=== PATIENT | male | born 1975 | race American Indian/Alaskan Native ===

== ENCOUNTER 2016-12-24 07:35 | Emergency (ER) | payer BC, OTHER ==
[2016-12-24 07:51] VITALS: BMI 29.9
[2016-12-24] MEDS: Albuterol-Ipratrop 3 mg / 0.5 (3 ml) UD IH SCH ×3 (08:13→08:50)
--- NOTE | 2016-12-24 08:17 | ED PDOC ---
Arrival/HPI - General Chief Complaint: Shortness Of Breath Time Seen by Provider: 12/24/16 07:38 Historian: Patient - History of Present Illness Narrative History of Present Illness (Text): 12/24/16 07:56 A 41 year old male, whose past medical history includes hypertension and heart murmur, presents to the emergency department complaining of intermittent cough with phlegm (clear to green and vice versa) and shortness of breath for 2 days. Patient reports 2 days ago, he went to visit his PMD for shortness of breath and sore throat. PMD stated patient had strep throat and prescribed augmentin for symptoms. Patient mentions he has no history of asthma as a child. Also, patient states and son had similar symptoms of strep throat, is currently feeling better but son still is sick. Patient notes also experiencing congestion, but denies of any fever, chest pain, or any other complaints. No PMD Time/Duration: < week (2 days) Symptom Onset: Sudden Symptom Course: Unchanged Activities at Onset: Rest, Light Past Medical History - Provider Review Nursing Documentation Reviewed: Yes - Infectious Disease Hx of Infectious Diseases: None - Tetanus Immunization Tetanus Immunization: Up to Date - Cardiac Hx Cardiac Disorders: Yes Hx Heart Murmur: Yes - Pulmonary Hx Respiratory Disorders: No - Neurological Hx Neurological Disorder: No - HEENT Hx HEENT Disorder: No - Renal Hx Renal Disorder: No - Endocrine/Metabolic Hx Endocrine Disorders: No - Hematological/Oncological Hx Blood Disorders: No - Integumentary Hx Dermatological Disorder: No - Musculoskeletal/Rheumatological Hx Musculoskeletal Disorders: Yes Hx Rhabdomyolysis: Yes - Gastrointestinal Hx Gastrointestinal Disorders: No - Genitourinary/Gynecological Hx Genitourinary Disorders: No - Psychiatric Hx Psychophysiologic Disorder: Yes Hx Anxiety: Yes Hx Substance Use: No - Past Surgical History Past Surgical History: No Previous - Anesthesia Hx Anesthesia: No - Suicidal Assessment Feels Threatened In Home Enviroment: No Family/Social History - Physician Review Nursing Documentation Reviewed: Yes Family/Social History: No Known Family HX Smoking Status: Heavy Smoker > 10 Cigarettes Daily Hx Alcohol Use: Yes Hx Substance Use: No Hx Substance Use Treatment: No Allergies/Home Meds Allergies/Adverse Reactions: Allergies No Known Allergies Allergy (Verified 12/24/16 07:51) Home Medications: Home Meds Medication Instructions Recorded Confirmed Albuterol HFA [Ventolin HFA 90 1 puff IH DAILY 12/24/16 12/24/16 mcg/actuation (8 g)] Amoxicillin/Clavulanate [Augmentin 1 tab PO BID 12/24/16 12/24/16 875 MG-125 MG] Metoprolol Tartrate [Lopressor] 50 mg PO DAILY 12/24/16 12/24/16 amLODIPine [Norvasc] 10 mg PO DAILY 12/24/16 12/24/16 Review of Systems - Physician Review All systems were reviewed & negative as marked: Yes - Review of Systems Constitutional: absent: Fevers ENT: Sinus Congestion Respiratory: SOB, Cough (intermittent cough with phlegm (clear to green and vice versa)) Cardiovascular: absent: Chest Pain Physical Exam Vital Signs Reviewed: Yes Vital Signs Temp Pulse Resp BP Pulse Ox 12/24/16 09:26 98.0 F 98 H 17 140/86 96 12/24/16 08:00 18 99 12/24/16 07:51 97.8 F 99 H 19 145/94 H 100 12/24/16 07:50 97.8 F 99 H 19 145/94 H 100 Temperature: Afebrile Blood Pressure: Normal Respiratory Rate: Normal Appearance: Positive for: Well-Appearing Pain Distress: None Mental Status: Positive for: Alert and Oriented X 3 - Systems Exam Head: Present: Atraumatic, Normocephalic Pupils: Present: PERRL Extroacular Muscles: Present: EOMI Conjunctiva: Present: Normal Mouth: Present: Moist Mucous Membranes Nose (Internal): Present: Rhinorrhea Neck: Present: Normal Range of Motion Respiratory/Chest: Present: Wheezes (scattered wheezing bilaterally), Rhonchi ( scattered rhonchi bilaterally) Cardiovascular: Present: Regular Rate and Rhythm, Normal S1, S2. No: Murmurs Abdomen: Present: Normal Bowel Sounds. No: Tenderness, Distention, Peritoneal Signs Back: Present: Normal Inspection Upper Extremity: Present: Normal Inspection. No: Cyanosis, Edema Lower Extremity: No: Edema Neurological: Present: GCS=15, CN II-XII Intact, Speech Normal, Motor Func Grossly Intact, Normal Sensory Function Skin: Present: Warm, Dry, Normal Color. No: Rashes Psychiatric: Present: Alert, Oriented x 3, Normal Insight, Normal Concentration Medical Decision Making ED Course and Treatment: 12/24/16 08:00 Impression: 41 year old male with shortness of breath and intermittent cough with phlegm (clear to green and vice versa). Physical exam shows rhinorrhea; scattered rhonchi and wheezing bilaterally; no lower extremity edema. Differential Diagnosis included but are not limited to: Bronchitis vs. Asthma Plan: -- EKG -- Chest X-ray -- Serology -- Duoneb -- Reassess and disposition Prior Visits: Notes and results from previous visits were reviewed. Patient was last seen in the emergency department on 09/12/2014 for lightheadedness, dizziness, and some nausea. Patient was discharged home. Progress Notes: EKG: Ordered, reviewed, and independently interpreted the EKG. Rate : 94 BPM Rhythm : NSR Interpretation : No ST-segment elevations or depressions, no T-wave inversions, normal intervals. Comparison : No previous EKG for comparison. 12/24/2016 09:[address] IMPRESSION: No active disease. No interval pahtology noted. Dictator: Sreedhar Tanner MD Patient's Xray was negative for PNA. On reevaluation, patient felt much better and no longer has symptoms. Lungs are cta b/l no w/r/r. He was given prednisone and will continue to take it for 4 days. He was advised to continue antibiotics and to take albuterol as needed. He was advised to return to the ED if symptoms worsen or any other concern. - Lab Interpretations Lab Results: Lab Results 12/24/16 08:01: Influenza Typ A,B (EIA) Negative for flu a/b I have reviewed the lab results: Yes Interpretation: All labs normal - RAD Interpretation Radiology Orders: 12/24/16 08:01 CHEST TWO VIEWS (PA/LAT) [RAD] Stat Banquet Stewardess: Radiologist - Medication Orders Current Medication Orders: Discontinued Medications Albuterol/Ipratropium (Duoneb 3 Mg/0.5 Mg (3 Ml) Ud) 3 ml IH Q15M JOSY Stop: 12/24/16 08:31 Last Admin: 12/24/16 08:50 Dose: 3 ml Prednisone (Prednisone Tab) 60 mg PO STAT STA Stop: 12/24/16 09:19 Last Admin: 12/24/16 09:23 Dose: 60 mg - Scribe Statement The provider has reviewed the documentation as recorded by the Jose E Howard Provider Scribe Attestation: All medical record entries made by the Scribe were at my direction and personally dictated by me. I have reviewed the chart and agree that the record accurately reflects my personal performance of the history, physical exam, medical decision making, and the department course for this patient. I have also personally directed, reviewed, and agree with the discharge instructions and disposition. Disposition/Present on Arrival - Present on Arrival Any Indicators Present on Arrival: No History of DVT/PE: No History of Uncontrolled Diabetes: No Urinary Catheter: No History of Decub. Ulcer: No History Surgical Site Infection Following: None - Disposition Have Diagnosis and Disposition been Completed?: Yes Diagnosis: Bronchitis Disposition: HOME/ ROUTINE Disposition Time: 09:20 Patient Plan: Discharge Condition: IMPROVED Discharge Instructions (ExitCare): Acute Bronchitis (ED) Additional Instructions: Mr Nielson, thank you for letting us take care of you today. Your provider was Dr. Leon. You were treated for Bronchitis. The emergency medical care you received today was directed at your acute symptoms. If you were prescribed any medication, please fill it and take as directed. It may take several days for your symptoms to resolve. Return to the Emergency Department if your symptoms worsen, do not improve, or if you have any other problems. Please contact your doctor or call one of the physicians/clinics you have been referred to that are listed on the Patient Visit Information form that is included in your discharge packet. Bring any paperwork you were given at discharge with you along with any medications you are taking to your follow up visit. Our treatment cannot replace ongoing medical care by a primary care provider (PCP) outside of the emergency department. Thank you for allowing the [facility] team to be part of your care today. If you had an X-Ray or CT scan: A Radiologist will review the ED reading if any change in treatment is needed we will contact you. If you had a blood, urine, or wound culture: It will take several days for the results, if any change in treatment is needed we will contact you. If you had an STI test: It will take 48 hours for the results. Please call after 1 week if you have not heard back. Prescriptions: Albuterol HFA [Ventolin HFA 90 mcg/actuation (8 g)] 2 puff IH Q4 #1 puff predniSONE [predniSONE Tab] 40 mg PO DAILY #8 tab Referrals: [facility], [Family Provider] - Follow up with primary Forms: [employer] (Indonesian), WORK NOTE
[2016-12-24 09:29] VITALS: BP 140/86; PULSE 98; RESP 17; TEMP 98; O2SAT 96
--- NOTE | 2016-12-24 09:34 | RAD ---
HISTORY: cough r/o PNA COMPARISON: 09/12/2014 TECHNIQUE: Chest PA and lateral FINDINGS: LUNGS: No active pulmonary disease. PLEURA: No significant pleural effusion identified. No pneumothorax apparent. CARDIOVASCULAR: Normal. OSSEOUS STRUCTURES: No significant abnormalities. VISUALIZED UPPER ABDOMEN: Normal. OTHER FINDINGS: None. IMPRESSION: No active disease. No interval pathology noted
--- NOTE | 2016-12-24 21:30 | CARD ---
APPROVED REPORT EKG Measurement Heart [id number] <Conclusion> Normal sinus rhythm Possible Left atrial enlargement Left ventricular hypertrophy Abnormal ECG
== END 2016-12-24 09:29 | disposition home or self-care (01) ==
LOC: ED 07:35
DX: J40 Bronchitis, not specified as acute or chronic (principal); F17.210 Nicotine dependence, cigarettes, uncomplicated; I10 Essential (primary) hypertension

== ENCOUNTER 2017-12-04 19:24 | Emergency (ER) | payer BC ==
[2017-12-04 19:38] VITALS: RESP 18; BMI 27.5
--- NOTE | 2017-12-04 19:55 | ED PDOC ---
Arrival/HPI - General Chief Complaint: Dizziness/Lightheaded Time Seen by Provider: 12/04/17 19:28 Historian: Patient - History of Present Illness Narrative History of Present Illness (Text): 12/04/17 19:52 42 year old male, whose past medical history includes hypertension and heart murmur, presents to the emergency department with headache discomfort, occasional dizziness, and sore throat. Patient informs he is compliant with his blood pressure medications, Lopressor and Amalodipine. Patient denies any nausea, vomiting, chest pain, shortness of breath, fevers, chills, or any other complaint. Time/Duration: Prior to Arrival Past Medical History - Provider Review Nursing Documentation Reviewed: Yes - Infectious Disease Hx of Infectious Diseases: None - Tetanus Immunization Tetanus Immunization: Up to Date - Cardiac Hx Cardiac Disorders: Yes Hx Heart Murmur: Yes - Pulmonary Hx Respiratory Disorders: No - Neurological Hx Neurological Disorder: No - HEENT Hx HEENT Disorder: No - Renal Hx Renal Disorder: No - Endocrine/Metabolic Hx Endocrine Disorders: No - Hematological/Oncological Hx Blood Disorders: No - Integumentary Hx Dermatological Disorder: No - Musculoskeletal/Rheumatological Hx Musculoskeletal Disorders: Yes Hx Rhabdomyolysis: Yes - Gastrointestinal Hx Gastrointestinal Disorders: No - Genitourinary/Gynecological Hx Genitourinary Disorders: No - Psychiatric Hx Psychophysiologic Disorder: Yes Hx Anxiety: Yes Hx Substance Use: No - Past Surgical History Past Surgical History: No Previous - Anesthesia Hx Anesthesia: No - Suicidal Assessment Feels Threatened In Home Enviroment: No Family/Social History - Physician Review Nursing Documentation Reviewed: Yes Family/Social History: No Known Family HX Smoking Status: Heavy Smoker > 10 Cigarettes Daily Hx Alcohol Use: Yes Hx Substance Use: No Hx Substance Use Treatment: No Allergies/Home Meds Allergies/Adverse Reactions: Allergies No Known Allergies Allergy (Verified 12/04/17 19:38) Home Medications: Home Meds Medication Instructions Recorded Confirmed Metoprolol Tartrate [Lopressor] 50 mg PO DAILY 12/24/16 12/04/17 amLODIPine [Norvasc] 10 mg PO DAILY 12/24/16 12/04/17 Review of Systems - Physician Review All systems were reviewed & negative as marked: Yes - Review of Systems Constitutional: absent: Fevers, Night Sweats ENT: Sore Throat Respiratory: absent: SOB Cardiovascular: absent: Chest Pain Gastrointestinal: absent: Nausea, Vomiting Neurological: Headache, Dizziness Physical Exam Vital Signs Reviewed: Yes Vital Signs Pulse Resp BP Pulse Ox 12/04/17 19:37 77 18 150/90 99 Temperature: Afebrile Blood Pressure: Normal Pulse: Regular Respiratory Rate: Normal Appearance: Positive for: Well-Appearing, Non-Toxic, Comfortable Pain Distress: None Mental Status: Positive for: Alert and Oriented X 3 - Systems Exam Head: Present: Atraumatic, Normocephalic Pupils: Present: PERRL Extroacular Muscles: Present: EOMI Conjunctiva: Present: Normal Mouth: Present: Moist Mucous Membranes Pharnyx: Present: ERYTHEMA (To posterior Pharnyx). No: EXUDATE Neck: Present: Normal Range of Motion, Other (Supple). No: Meningeal Signs Respiratory/Chest: Present: Clear to Auscultation, Good Air Exchange. No: Respiratory Distress, Accessory Muscle Use Cardiovascular: Present: Regular Rate and Rhythm, Normal S1, S2. No: Murmurs Abdomen: No: Tenderness, Distention, Peritoneal Signs Back: Present: Normal Inspection Upper Extremity: Present: Normal Inspection. No: Cyanosis, Edema Lower Extremity: Present: Normal Inspection. No: Edema Neurological: Present: GCS=15, CN II-XII Intact, Speech Normal Skin: Present: Warm, Dry, Normal Color. No: Rashes Psychiatric: Present: Alert, Oriented x 3, Normal Insight, Normal Concentration Medical Decision Making ED Course and Treatment: 12/04/17 19:58 Impression: 42 year old male presents with headache discomfort, dizziness, and sore throat. Plan: -- CT Head w/o contrast -- Ultram -- Reassess and disposition Prior Visits: Notes and results from previous visits were reviewed. On 12/24/2016, pt was seen in the Emergency Department for intermittent cough and shortness of breath. Pt was discharged home. Progress Notes: 12/04/17 22:06 CT Head Impression: No acute intracranial abnormality. Electronically signed on Dec 05, 2011 22:01:05 EDT by: Clement Agudelo M.D. - RAD Interpretation Accounts Payable Accountant: Radiologist - Scribe Statement The provider has reviewed the documentation as recorded by the Veeibbernadette Kemp Provider Scribe Attestation: All medical record entries made by the Scribe were at my direction and personally dictated by me. I have reviewed the chart and agree that the record accurately reflects my personal performance of the history, physical exam, medical decision making, and the department course for this patient. I have also personally directed, reviewed, and agree with the discharge instructions and disposition. Disposition/Present on Arrival - Present on Arrival Any Indicators Present on Arrival: No History of DVT/PE: No History of Uncontrolled Diabetes: No Urinary Catheter: No History of Decub. Ulcer: No History Surgical Site Infection Following: None - Disposition Have Diagnosis and Disposition been Completed?: Yes Diagnosis: Headache, Pharyngitis Disposition: HOME/ ROUTINE Disposition Time: 23:00 Patient Plan: Discharge Condition: GOOD Discharge Instructions (ExitCare): Sore Throat, Adult (DC), Tension Headache (DC) Additional Instructions: Take meds as prescribed/drink cool liquids/follow up with your doctor this week Prescriptions: Amoxicillin [Amoxil 500 mg Cap] 500 mg PO TID #21 cap Acetaminophen/Butalbital/Caf [Fioricet] 1 tab PO Q6 PRN #16 tab PRN Reason: Headache Referrals: Chelsie Howard MD [Primary Care Provider] - Follow up with primary Forms: [email or web address] (Irish)
[2017-12-05 01:01] VITALS: BP 119/72; PULSE 68; TEMP 98.2; O2SAT 100
--- NOTE | 2017-12-05 13:08 | CT ---
Date of service: 12/04/2017 PROCEDURE: CT HEAD WITHOUT CONTRAST. HISTORY: headache COMPARISON: None available. TECHNIQUE: Axial computed tomography images were obtained through the head/brain without intravenous contrast. Supplemental Coronal and Sagittal projectections created and reviewed. Radiation dose: Total exam DLP = mGy-cm. This CT exam was performed using one or more of the following dose reduction techniques: Automated exposure control, adjustment of the mA and/or kV according to patient size, and/or use of iterative reconstruction technique. FINDINGS: HEMORRHAGE: No intracranial hemorrhage. BRAIN: No mass effect or edema. No atrophy or chronic microvascular ischemic changes. VENTRICLES: Unremarkable. No hydrocephalus. CALVARIUM: Unremarkable. PARANASAL SINUSES: Unremarkable as visualized. No significant inflammatory changes. MASTOID AIR CELLS: Unremarkable as visualized. No inflammatory changes. OTHER FINDINGS: None. IMPRESSION: No acute intracranial abnormalities. No significant findings to account for the clinical presentation. Concordant results (preliminary interpretation) provided by [employer]. Procedure Completed: 21:25 Preliminary Report: Dictated and Authenticated: 22:01. Final Interpretation: 13:06.
== END 2017-12-04 23:08 | disposition home or self-care (01) ==
LOC: ED 19:24
DX: J02.9 Acute pharyngitis, unspecified (principal); R51 Headache; I10 Essential (primary) hypertension; F17.210 Nicotine dependence, cigarettes, uncomplicated

== ENCOUNTER 2018-07-08 10:51 | Emergency (ER) | payer BC ==
[2018-07-08 10:52] VITALS: BMI 27.5
[2018-07-08 11:17] VITALS: RESP 18; TEMP 99.1
[2018-07-08] MEDS ORDERED: Sodium Chloride 0.9% 1,000 ML IV STA (11:56)
[2018-07-08 12:33] LABS: BASO # 0.04 K/mm3 (0.0-2.0); BASO % 0.5 % (0.0-3.0); EOS # 0.1 (0.0-0.7); EOS % 1.3 % (1.5-5.0); LYMPH # 2.4 (1.2-3.4); LYMPH % 31.3 % (22.0-35.0); MEAN CELL VOLUME 92.3 fl (80.0-105.0); MEAN CORPUSCULAR HEMOGLOBIN 31.9 pg (25.0-35.0); MEAN CORPUSCULAR HGB CONC 34.6 g/dl (31.0-37.0); MEAN PLATELET VOLUME 9.1 fl (7.0-11.0); MONO # 0.5 (0.1-0.6); MONO % 5.9 % (1.0-6.0); RBC 4.7 10^6/uL (3.5-6.1); RED CELL DISTRIBUTION WIDTH 12.9 % (11.5-14.5); WHITE BLOOD COUNT 7.7 10^3/uL (4.5-11.0)
[2018-07-08 12:40] LABS: ALB/GLOB RATIO 1.5 (1.1-1.8); ALBUMIN 4.4 g/dL (3.0-4.8); ALT/SGPT 70 U/L (7-56); AST/SGOT 42 U/L (17-59); BLOOD UREA NITROGEN 14 mg/dL (7-21); CALCIUM 9.7 mg/dL (8.4-10.5); GFR NON-AFRICAN AMERICAN > 60; LIPASE 87 U/L (23-300)
[2018-07-08 12:44] LABS: PH,URINE 6.5 (4.7-8.0); URINE BILIRUBIN NEGATIVE (NEGATIVE); URINE BLOOD NEGATIVE (NEGATIVE); URINE GLUCOSE (UA) NEGATIVE (NEGATIVE); URINE LEUKOCYTE ESTERASE NEGATIVE Leu/uL (NEGATIVE); URINE PROTEIN NEGATIVE mg/dL (<30 mg/dL)
[2018-07-08 12:48] LABS: URINE APPEARANCE CLEAR (CLEAR); URINE COLOR YELLOW (YELLOW)
[2018-07-08 12:53] LABS: TROPONIN I < 0.01 ng/mL
[2018-07-08 12:59] VITALS: O2SAT 100
[2018-07-08 13:02] LABS: CK-MB 1.6 ng/mL (0.0-3.6)
--- NOTE | 2018-07-08 14:43 | CT ---
Date of service: 07/08/2018 PROCEDURE: CT Abdomen and Pelvis with contrast HISTORY: upper abdominal pain COMPARISON: None. TECHNIQUE: Contrast dose: 150 cc of Omni 350 Radiation dose: Total exam DLP = 1116.04 mGy-cm. This CT exam was performed using one or more of the following dose reduction techniques: Automated exposure control, adjustment of the mA and/or kV according to patient size, and/or use of iterative reconstruction technique. FINDINGS: LOWER THORAX: Unremarkable. LIVER: Unremarkable. No gross lesion or ductal dilatation. GALLBLADDER AND BILE DUCTS: Unremarkable. PANCREAS: Unremarkable. No gross lesion or ductal dilatation. SPLEEN: Unremarkable. ADRENALS: Unremarkable. No mass. KIDNEYS AND URETERS: Unremarkable. No hydronephrosis. No solid mass. VASCULATURE: Unremarkable. No aortic aneurysm. Minimal aortic calcification BOWEL: Unremarkable. No obstruction. No gross mural thickening. There is fatty infiltration of the bowel wall in the ascending colon. This can be seen in chronic inflammatory bowel disease. There are no acute changes. APPENDIX: Normal appendix. PERITONEUM: Unremarkable. No free fluid. No free air. LYMPH NODES: Unremarkable. No enlarged lymph nodes. BLADDER: Unremarkable. REPRODUCTIVE: Unremarkable. BONES: No acute fracture. OTHER FINDINGS: None. IMPRESSION: No acute intra-abdominal findings
[2018-07-08 15:14] VITALS: BP 122/69; PULSE 61
--- NOTE | 2018-07-08 16:02 | ED PDOC ---
Arrival/HPI - General Chief Complaint: GI Problem Historian: Patient - History of Present Illness Narrative History of Present Illness (Text): 07/08/18 16:02 Shawn Nielson is a 43 year old male, with a past medical history of hypertension and heart murmur, who presents to the emergency department complaining of diarrhea since 2-3 days. Patient informs diarrhea is nonbloody but notes associated nausea. Patient denies fevers, chills, chest pain, shortn ess of breath, abdominal pain, vomiting, headache, dizziness, or any other complaints. Time/Duration: < week (2-3 days) Symptom Onset: Sudden Symptom Course: Unchanged Activities at Onset: Light Context: Home Past Medical History - Provider Review Nursing Documentation Reviewed: Yes - Infectious Disease Hx of Infectious Diseases: None - Tetanus Immunization Tetanus Immunization: Up to Date - Cardiac Hx Cardiac Disorders: Yes Hx Heart Murmur: Yes - Pulmonary Hx Respiratory Disorders: No - Neurological Hx Neurological Disorder: No - HEENT Hx HEENT Disorder: No - Renal Hx Renal Disorder: No - Endocrine/Metabolic Hx Endocrine Disorders: No - Hematological/Oncological Hx Blood Disorders: No - Integumentary Hx Dermatological Disorder: No - Musculoskeletal/Rheumatological Hx Musculoskeletal Disorders: Yes Hx Rhabdomyolysis: Yes - Gastrointestinal Hx Gastrointestinal Disorders: No - Genitourinary/Gynecological Hx Genitourinary Disorders: No - Psychiatric Hx Psychophysiologic Disorder: Yes Hx Anxiety: Yes Hx Substance Use: No - Past Surgical History Past Surgical History: No Previous - Anesthesia Hx Anesthesia: No - Suicidal Assessment Feels Threatened In Home Enviroment: No Family/Social History - Physician Review Nursing Documentation Reviewed: Yes Family/Social History: Unknown Family HX Smoking Status: Heavy Smoker > 10 Cigarettes Daily Hx Alcohol Use: Yes Hx Substance Use: No Hx Substance Use Treatment: No Allergies/Home Meds Allergies/Adverse Reactions: Allergies No Known Allergies Allergy (Verified 12/04/17 19:38) Home Medications: Home Meds Medication Instructions Recorded Confirmed Metoprolol Tartrate [Lopressor] 50 mg PO DAILY 12/24/16 07/08/18 Losartan/Hydrochlorothiazide 1 each PO DAILY 07/08/18 07/08/18 [Losartan-Hctz 100-25 mg Tab] Verapamil [Verapamil HCl] 300 mg PO DAILY 07/08/18 07/08/18 Review of Systems - Physician Review All systems were reviewed & negative as marked: Yes - Review of Systems Constitutional: absent: Fevers, Other (chills) Respiratory: absent: SOB Cardiovascular: absent: Chest Pain Gastrointestinal: Diarrhea, Nausea. absent: Abdominal Pain, Vomiting Neurological: absent: Headache, Dizziness Physical Exam Vital Signs Reviewed: Yes Vital Signs Temp Pulse Resp BP Pulse Ox 07/08/18 15:13 61 18 122/69 100 07/08/18 12:59 54 L 18 131/72 100 07/08/18 11:13 99.1 F 70 18 154/95 H 99 Temperature: Afebrile Blood Pressure: Normal Pulse: Regular Respiratory Rate: Normal Appearance: Positive for: Well-Appearing, Non-Toxic, Comfortable Pain Distress: None Mental Status: Positive for: Alert and Oriented X 3 - Systems Exam Head: Present: Atraumatic, Normocephalic Pupils: Present: PERRL Extroacular Muscles: Present: EOMI Conjunctiva: Present: Normal Mouth: Present: Moist Mucous Membranes Neck: Present: Normal Range of Motion Respiratory/Chest: Present: Clear to Auscultation, Good Air Exchange. No: Respiratory Distress, Accessory Muscle Use, Wheezes, Rales, Rhonchi Cardiovascular: Present: Regular Rate and Rhythm, Normal S1, S2. No: Murmurs, Rub, Gallop Abdomen: Present: Tenderness (mild epigastric tenderness), Normal Bowel Sounds. No: Distention, Peritoneal Signs, Rebound, Guarding Back: Present: Normal Inspection Upper Extremity: Present: Normal Inspection. No: Cyanosis, Edema Lower Extremity: Present: Normal Inspection. No: Edema Neurological: Present: GCS=15, CN II-XII Intact, Speech Normal Skin: Present: Warm, Dry, Normal Color. No: Rashes Psychiatric: Present: Alert, Oriented x 3, Normal Insight, Normal Concentration Medical Decision Making ED Course and Treatment: 07/08/18 16:05 Impression: Patient is a 43 year old male, with a past medical history of hypertension and heart murmur, who presents to the emergency department complaining of diarrhea since 2-3 days. Plan: -- Abdomen/Pelvis CT with IV Contrast -- EKG -- Labs -- Pepcid -- Zofran -- IV Fluids -- Urinalysis -- Reassess and disposition Prior Visits: Notes and results from previous visits were reviewed. Progress Notes: 07/08/18 16:14 On re-evaluation, patient feels better and has no complaints. - Lab Interpretations Lab Results: Troponin I < 0.01 ng/mL 07/08/18 12:20 Total Bilirubin 0.7 mg/dL (0.2-1.3) 07/08/18 12:20 AST 42 U/L (17-59) 07/08/18 12:20 ALT 70 U/L (7-56) H 07/08/18 12:20 Alkaline Phosphatase 68 U/L (38-126) 07/08/18 12:20 Total Protein 7.4 g/dL (5.8-8.3) 07/08/18 12:20 Albumin 4.4 g/dL (3.0-4.8) 07/08/18 12:20 Globulin 2.9 gm/dL 07/08/18 12:20 Albumin/Globulin Ratio 1.5 (1.1-1.8) 07/08/18 12:20 Lipase 87 U/L (23-300) 07/08/18 12:20 Urine Color Yellow (YELLOW) 07/08/18 12:25 Urine Appearance Clear (CLEAR) 07/08/18 12:25 Urine pH 6.5 (4.7-8.0) 07/08/18 12:25 Ur Specific Isabella 1.015 (1.005-1.035) 07/08/18 12:25 Urine Protein Negative mg/dL (<30 mg/dL) 07/08/18 12:25 Urine Glucose (UA) Negative mg/dL (NEGATIVE) 07/08/18 12:25 Urine Ketones Negative mg/dL (NEGATIVE) 07/08/18 12:25 Urine Blood Negative (NEGATIVE) 07/08/18 12:25 Urine Nitrate Negative (NEGATIVE) 07/08/18 12:25 Urine Bilirubin Negative (NEGATIVE) 07/08/18 12:25 Urine Urobilinogen 1.0 E.U./dL (<1 E.U./dL) H 07/08/18 12:25 Ur Leukocyte Esterase Negative Geoff/uL (NEGATIVE) 07/08/18 12:25 - RAD Interpretation Radiology Orders: 07/08/18 12:10 ABD & PELVIS IV CONTRAST ONLY [CT] Stat - EKG Interpretation EKG Interpretation (Text): 07/08/18 16:08 Reviewed EKG, shows: Sinus Bradycardia at 57 BPM. Interpreted by ED Physician: Yes Type: 12 lead EKG - Medication Orders Current Medication Orders: Discontinued Medications Famotidine (Pepcid) 20 mg IVP STAT STA Stop: 07/08/18 11:57 Last Admin: 07/08/18 12:18 Dose: 20 mg IVP Administration Document 07/08/18 12:18 BB (Rec: 07/08/18 12:[id number] Charges for Administration # of IVP Administrations 1 Sodium Chloride (Sodium Chloride 0.9%) 1,000 mls @ 1,000 mls/hr IV .Q1H STA Stop: 07/08/18 12:55 Last Admin: 07/08/18 12:18 Dose: 1,000 mls/hr eMAR Start Stop Document 07/08/18 12:18 BB (Rec: 07/08/18 12:18 BB [id number]) Intravenous Solution Start Date 07/08/18 Start Time 12:18 Ondansetron HCl (Zofran Inj) 4 mg IVP STAT STA Stop: 07/08/18 11:57 Last Admin: 07/08/18 12:19 Dose: 4 mg IVP Administration Document 07/08/18 12:19 BB (Rec: 07/08/18 12:19 BB [id number]) Charges for Administration # of IVP Administrations 1 - Scribe Statement The provider has reviewed the documentation as recorded by the Scribe Clement Bryant All medical record entries made by the Scribe were at my direction and personally dictated by me. I have reviewed the chart and agree that the record accurately reflects my personal performance of the history, physical exam, medical decision making, and the department course for this patient. I have also personally directed, reviewed, and agree with the discharge instructions and disposition. Disposition/Present on Arrival - Present on Arrival Any Indicators Present on Arrival: No History of DVT/PE: No History of Uncontrolled Diabetes: No Urinary Catheter: No History of Decub. Ulcer: No History Surgical Site Infection Following: None - Disposition Have Diagnosis and Disposition been Completed?: Yes Diagnosis: Enteritis Disposition: HOME/ ROUTINE Disposition Time: 14:45 Condition: IMPROVED Discharge Instructions (ExitCare): Diarrhea in Adolescents and Adults Additional Instructions: SHAWN NIELSON, thank you for letting us take care of you today. The emergency medical care you received today was directed at your acute symptoms. If you were prescribed any medication, please fill it and take as directed. It may take several days for your symptoms to resolve. Return to the Emergency Department if your symptoms worsen, do not improve, or if you have any other problems. Please contact your doctor or call one of the physicians/clinics you have been referred to that are listed on the Patient Visit Information form that is included in your discharge packet. Bring any paperwork you were given at discharge with you along with any medications you are taking to your follow up visit. Our treatment cannot replace ongoing medical care by a primary care provider outside of the emergency department. Thank you for allowing the [facility] team to be part of your care today. Drink fluids throughout the day to maintain hydration. Follow up with your primary care doctor in 2-3 days for re-evaluation and further management. Referrals: [facility], [Non-Staff] - Follow up with primary Forms: [employer] (Malay), WORK NOTE
--- NOTE | 2018-07-08 21:01 | CARD ---
APPROVED REPORT Date of service: 07/08/2018 EKG Measurement Heart [id number] <Conclusion> Poor data quality, interpretation may be adversely affected Sinus bradycardia Otherwise normal ECG
== END 2018-07-08 15:14 | disposition home or self-care (01) ==
LOC: ED 10:51
DX: K52.9 Noninfective gastroenteritis and colitis, unspecified (principal); I10 Essential (primary) hypertension; F17.210 Nicotine dependence, cigarettes, uncomplicated; R01.1 Cardiac murmur, unspecified
CPT/HCPCS: 74177; 80053; 81003; 82550; 82553; 83615; 83690; 83735; 84484; 85025; 87086; 93005; 96374; 96375; 99283; J2405; J7030; Q9967